=== PATIENT | female | born 1950 | race Caucasian/White ===

== ENCOUNTER 2025-01-07 06:09 | Day surgery (SDC) | payer MEDICARE, SELFPAY ==
[2025-01-07 07:43] VITALS: BMI 27.5
[2025-01-07 07:45] VITALS: BMI 27.5
[2025-01-07 07:47] VITALS: BP 117/68
[2025-01-07 10:04] VITALS: BP 101/54
[2025-01-07 10:15] VITALS: BP 114/67
[2025-01-07 10:28] VITALS: BP 123/58
== END 2025-01-07 10:44 | disposition home or self-care (01) ==
LOC: SDS 06:09
PROVIDERS: ATTENDING PHYSICIAN Internal Medicine Gastroenterology
DX: K86.9 Disease of pancreas, unspecified (principal); K76.89 Other specified diseases of liver; K44.9 Diaphragmatic hernia without obstruction or gangrene; K31.7 Polyp of stomach and duodenum; K31.89 Other diseases of stomach and duodenum
CPT/HCPCS: 43259